=== PATIENT | female | born 1925 | race Caucasian/White ===

== ENCOUNTER 2016-12-20 14:55 | Inpatient (IN) | payer OTHER ==
[~2016-12-20] VITALS: Ht 154.9 cm; Wt 56.2 kg
[~2016-12-20 14:55] MED LIST: ACET-1079 PO; CALC500C71 OR; METO-159 PO; NIFE60TA59 PO; OMEP20CA5 PO; PRO10T OR; TRAM50TA2 OR; [UNRECOGNIZED DRUG - CODE] PO
[2016-12-20] MEDS ORDERED: ONDANSETRON HCL 4 MG/2 ML VIAL IV ONE (15:45)
[2016-12-20] MEDS ORDERED: MORPHINE SULFATE 4 MG/ML SYRG IV ONE (15:45)
[2016-12-20 16:25] LABS: Hematocrit 40.8 % (36.0-46.0); Hemoglobin 13.1 g/dL (12.2-16.2); Mean Corpuscular Hemoglobin 30.1 pg (28.0-32.0); Mean Corpuscular Volume 94.1 fL (80.0-100.0); Mean Platelet Volume 8.7 fL (7.4-10.4); Platelet Count (auto) 238 10^3/uL (140-450); Red Cell Distribution Width 13.5 % (11.6-16.0); SUSPECT VIEW TRANSMISSION; White Blood Cell 18.3 10^3/uL (4.4-10.8)
[2016-12-20 16:39] LABS: Metamyelocytes % 0; Myelocytes % 0; Promyelocytes % 0; Reactive Lymphocytes 0
[2016-12-20 16:44] LABS: Albumin 3.7 g/dL (3.4-5.0); Calcium 9.5 mg/dL (8.5-10.1); Potassium 4.2 mmol/L (3.5-5.1)
[2016-12-20 16:46] LABS: BUN/Creatinine Ratio 13.7
[2016-12-20 16:57] LABS: Bilirubin, Total 0.5 mg/dL (0.2-1.0); Total Protein 7.3 g/dL (6.4-8.2)
[2016-12-20] MEDS ORDERED: NITROGLYCERIN 0.4 MG SL TAB SL PRN (18:00)
[2016-12-20] MEDS ORDERED: MORPHINE SULF INJ 2 MG/ML SYRINGE 1ML IV PRN (18:00)
[2016-12-20] MEDS ORDERED: ACETAMINOPHEN 500 MG TAB PO PRN (18:00)
[2016-12-20] MEDS ORDERED: DEXTROSE (50%) 50ML SYRG IV PRN (18:00)
[2016-12-20] MEDS ORDERED: TEMAZEPAM 15 MG CAP PO PRN (18:00)
[2016-12-20] MEDS ORDERED: HYDROcodone-ACET 5/325MG TAB PO PRN (18:00)
[2016-12-20] MEDS ORDERED: PROMETHAZINE HCL 25 MG/ML 1ML IV PRN (18:00)
[2016-12-20] MEDS: SODIUM CHLORIDE 0.9% 1,000 ML IV SCH (18:15)
[2016-12-20] MEDS: MORPHINE SULF INJ 2 MG/ML SYRINGE 1ML IV PRN ×2 (18:21→22:27)
[2016-12-20 19:04] LABS: Platelet Estimate Adequate
[2016-12-20 21:35] VITALS: BP 209/110
[2016-12-20 22:07] VITALS: BP 209/110
[2016-12-20] MEDS: LORazepam 0.5 MG TAB PO PRN (22:56)
[2016-12-20] MEDS: ACCU-CHEK COMFORT CURVE STRIP VI SCH (23:05)
[2016-12-20] MEDS: InsuLIN REG 1unit/0.01ml Soln (100units/ml) SC SCH (23:45)
[2016-12-21] MEDS ORDERED: ONDANSETRON HCL 4 MG/2 ML VIAL IV PRN (00:15)
[2016-12-21] MEDS ORDERED: DILTIAZEM HCL 25 MG/5 ML VIAL IV ONE (00:15)
[2016-12-21] MEDS: HYDROmorphone HCL 2 MG/ML VL IV PRN ×6 (00:43→21:47)
[2016-12-21] MEDS: LORazepam 0.5 MG TAB PO PRN ×2 (04:58→12:36)
[2016-12-21] MEDS: SODIUM CHLORIDE 0.9% 1,000 ML IV SCH ×3 (05:10→17:53)
[2016-12-21 06:21] VITALS: BP 208/79
[2016-12-21] MEDS: ACCU-CHEK COMFORT CURVE STRIP VI SCH ×4 (06:50→21:47)
[2016-12-21] MEDS: InsuLIN REG 1unit/0.01ml Soln (100units/ml) SC SCH ×4 (07:01→21:54)
[2016-12-21 08:28] VITALS: BP 184/85
[2016-12-21] MEDS ORDERED: LABETALOL HCL 5 MG/ML 4ML SYRINGE IV ONE (11:30)
[2016-12-21 15:46] LABS: Hemoglobin 9.6 g/dL (12.2-16.2); Mean Corpuscular Hemoglobin 30.2 pg (28.0-32.0); Mean Corpuscular Hgb Conc. 31.9 g/dL (32.0-36.0); Mean Corpuscular Volume 94.8 fL (80.0-100.0); Mean Platelet Volume 8.8 fL (7.4-10.4); Platelet Count (auto) 156 10^3/uL (140-450); Red Cell Distribution Width 13.9 % (11.6-16.0); SUSPECT VIEW TRANSMISSION; White Blood Cell 16.9 10^3/uL (4.4-10.8)
[2016-12-21 15:54] LABS: Metamyelocytes % 0; Myelocytes % 0; Promyelocytes % 0; Reactive Lymphocytes 0
[2016-12-21 16:33] LABS: Giant Platelets Few; Platelet Estimate Adequate
[2016-12-21 17:41] LABS: BUN/Creatinine Ratio 23.8; Calcium 7.9 mg/dL (8.5-10.1); Potassium 5.1 mmol/L (3.5-5.1)
[2016-12-21] MEDS ORDERED: LOPE1TAB9 PO (18:28)
[2016-12-21] MEDS ORDERED: OMEP20CA5 PO (18:28)
[2016-12-21] MEDS ORDERED: MECL-87 PO (18:28)
[2016-12-21] MEDS ORDERED: DIPH25CA6 PO (18:28)
[2016-12-21] MEDS ORDERED: OXYB15TA12 PO (18:28)
[2016-12-21] MEDS ORDERED: ALPR0.25 PO (18:28)
[2016-12-21] MEDS ORDERED: SULF400T11 PO (18:28)
[2016-12-21] MEDS ORDERED: LOSA25TA9 PO (18:28)
[2016-12-21] MEDS ORDERED: ASPI81CH43 PO (18:28)
[2016-12-21] MEDS ORDERED: IODIXANOL 320MG/ML 100ML BTL IV ONE (19:30)
[2016-12-21 21:30] VITALS: BP 171/68
[2016-12-21 22:15] VITALS: BP 187/71
[2016-12-21] MEDS: LABETALOL HCL 5 MG/ML 4ML SYRINGE IV PRN (22:36)
[2016-12-22] MEDS: HYDROmorphone HCL 2 MG/ML VL IV PRN ×4 (03:40→19:05)
[2016-12-22 05:00] VITALS: BP 152/72
[2016-12-22 06:22] LABS: Urine Bilirubin Negative (Negative); Urine Blood Negative /uL (Negative); Urine Color Yellow (Yellow); Urine Glucose Normal (Normal); Urine Hyaline Cast FEW /lpf (0 - 2); Urine Ketone Negative (Negative); Urine Nitrite Negative (Negative); Urine RBC <1 /hpf (0 - 4); Urine Squamous Epithelial Cell FEW /hpf (<5); Urine Urobilinogen Normal (Negative)
[2016-12-22] MEDS: ACCU-CHEK COMFORT CURVE STRIP VI SCH ×4 (06:23→21:55)
[2016-12-22] MEDS: InsuLIN REG 1unit/0.01ml Soln (100units/ml) SC SCH ×4 (06:30→22:00)
[2016-12-22] MEDS: SODIUM CHLORIDE 0.9% 1,000 ML IV SCH ×2 (08:11→22:32)
[2016-12-22 09:00] VITALS: BP 155/75
[2016-12-22] MEDS: NIFEdipine ER 30 MG TAB PO SCH (10:00)
[2016-12-22 11:19] LABS: DEFINITIVE VIEW TRANSMISSION; Hematocrit 25.5 % (36.0-46.0); Hemoglobin 8.2 g/dL (12.2-16.2); Mean Corpuscular Hemoglobin 30.1 pg (28.0-32.0); Mean Platelet Volume 8.4 fL (7.4-10.4); Platelet Count (auto) 141 10^3/uL (140-450); Red Cell Distribution Width 13.5 % (11.6-16.0); SUSPECT VIEW TRANSMISSION; White Blood Cell 18.5 10^3/uL (4.4-10.8)
[2016-12-22 11:32] LABS: Metamyelocytes % 0; Myelocytes % 0; Promyelocytes % 0; Reactive Lymphocytes 0
[2016-12-22 11:41] LABS: Albumin 2.7 g/dL (3.4-5.0); BUN/Creatinine Ratio 46.9; Bilirubin, Total 0.5 mg/dL (0.2-1.0); Calcium 8.2 mg/dL (8.5-10.1); Potassium 4.5 mmol/L (3.5-5.1); Total Protein 5.8 g/dL (6.4-8.2)
[2016-12-22 12:00] VITALS: BP 165/80
[2016-12-22] MEDS: LABETALOL HCL 5 MG/ML 4ML SYRINGE IV PRN ×2 (13:58→23:54)
[2016-12-22] MEDS ORDERED: ALPRAZolam 0.25 MG TAB PO SCH (14:45)
[2016-12-22 14:58] LABS: Platelet Estimate Adequate
[2016-12-22] MEDS ORDERED: METOPROLOL TARTRATE 50 MG TAB PO ONE (15:00)
[2016-12-22] MEDS ORDERED: LOSARTAN POTASSIUM 25 MG TAB PO ONE (15:00)
[2016-12-22 17:00] VITALS: BP 179/67
[2016-12-22 18:00] VITALS: BP 179/67
[2016-12-22 21:30] VITALS: BP 192/93
[2016-12-22] MEDS: METOPROLOL TARTRATE 50 MG TAB PO SCH (21:54)
[2016-12-22] MEDS: LORazepam 0.5 MG TAB PO PRN (21:55)
[2016-12-22] MEDS: LOSARTAN POTASSIUM 25 MG TAB PO SCH (21:55)
[2016-12-22] MEDS ORDERED: PATIENTS OWN MEDICATION (Metoprolol Tartrate 1 TAB) PO SCH (22:00)
[2016-12-22] MEDS ORDERED: ALBUTEROL SULF 2.5 MG/0.5ML(0.5%) NEB SOLN NEB PRN (23:45)
[2016-12-22] MEDS ORDERED: LEVOFLOXACIN 500MG 100 ML IV ONE (23:45)
[2016-12-22] MEDS ORDERED: ALBUTEROL SULF 2.5 MG/0.5ML(0.5%) NEB SOLN ONE (23:56)
[2016-12-23] MEDS: ALBUTEROL SULF 2.5 MG/0.5ML(0.5%) NEB SOLN NEB SCH ×4 (00:05→19:18)
[2016-12-23] MEDS: HYDROmorphone HCL 2 MG/ML VL IV PRN ×5 (00:35→23:17)
[2016-12-23 04:28] VITALS: BP 116/74
[2016-12-23] MEDS: CLINDAMYCIN 600MG IV 50 ML IV SCH ×3 (05:49→22:49)
[2016-12-23] MEDS: ACCU-CHEK COMFORT CURVE STRIP VI SCH ×4 (06:41→22:00)
[2016-12-23] MEDS: InsuLIN REG 1unit/0.01ml Soln (100units/ml) SC SCH ×4 (06:42→22:00)
[2016-12-23 07:34] LABS: DEFINITIVE VIEW TRANSMISSION; Hematocrit 22.8 % (36.0-46.0); Hemoglobin 7.3 g/dL (12.2-16.2); Mean Corpuscular Hemoglobin 30.4 pg (28.0-32.0); Mean Corpuscular Volume 94.8 fL (80.0-100.0); Platelet Count (auto) 129 10^3/uL (140-450); SUSPECT VIEW TRANSMISSION; White Blood Cell 14.7 10^3/uL (4.4-10.8)
[2016-12-23 08:04] LABS: Metamyelocytes % 0; Myelocytes % 0; Promyelocytes % 0; Reactive Lymphocytes 0
[2016-12-23 09:00] VITALS: BP 157/69
[2016-12-23 09:14] VITALS: BP 116/74
[2016-12-23 09:21] LABS: Platelet Estimate Decreased; RBC Morphology Normal
[2016-12-23] MEDS ORDERED: OMEPRAZOLE 20MG/10ML ORAL SUSP PO SCH (10:00)
[2016-12-23] MEDS ORDERED: PATIENTS OWN MEDICATION (Nifedipine (Nifedipine Er) 1 TAB) PO SCH ×2 (10:00)
[2016-12-23] MEDS: NIFEdipine ER 30 MG TAB PO SCH (10:08)
[2016-12-23] MEDS: PANTOPRAZOLE 40 MG TAB PO SCH (10:08)
[2016-12-23] MEDS: ASPirin 81 mg TAB PO SCH (10:08)
[2016-12-23] MEDS: METOPROLOL TARTRATE 50 MG TAB PO SCH ×2 (10:09→22:00)
[2016-12-23] MEDS: LOSARTAN POTASSIUM 25 MG TAB PO SCH ×2 (10:09→22:00)
[2016-12-23] MEDS: LEVOFLOXACIN 500MG 100 ML IV SCH (10:10)
[2016-12-23 12:21] VITALS: BP 143/61
[2016-12-23] MEDS: IPRATROPIUM BROM 0.5 MG/2.5ML INH SOL NEB SCH ×2 (14:40→19:18)
[2016-12-23 16:53] VITALS: BP 126/50
[2016-12-23] MEDS: SODIUM CHLORIDE 0.9% 1,000 ML IV SCH (17:27)
[2016-12-23] MEDS: traMADol HCL 50 MG TAB PO PRN (19:45)
[2016-12-23 22:00] VITALS: BP 124/62
[2016-12-24] MEDS: HYDROmorphone HCL 2 MG/ML VL IV PRN ×2 (04:30→22:24)
[2016-12-24] MEDS ORDERED: FUROSEMIDE 40 MG/4 ML VIAL ONE (05:09)
[2016-12-24] MEDS ORDERED: FUROSEMIDE 20 MG/2 ML VIAL ONE (05:10)
[2016-12-24] MEDS ORDERED: FUROSEMIDE 20 MG/2 ML VIAL IV ONE (05:30)
[2016-12-24] MEDS: CLINDAMYCIN 600MG IV 50 ML IV SCH ×3 (05:48→22:25)
[2016-12-24] MEDS ORDERED: DILTIAZEM HCL 25 MG/5 ML VIAL IV ONE ×2 (05:55→06:00)
[2016-12-24] MEDS: InsuLIN REG 1unit/0.01ml Soln (100units/ml) SC SCH ×4 (06:28→22:34)
[2016-12-24] MEDS: ACCU-CHEK COMFORT CURVE STRIP VI SCH ×4 (06:29→22:34)
[2016-12-24 06:56] LABS: Basophils # (auto) 0 uL; Basophils % (auto) 0.6 % (0.0-2.0); Eosinophils # (auto) 0.1 uL; Eosinophils % (auto) 1.9 % (0.0-7.0); Hematocrit 33.6 % (36.0-46.0); Hemoglobin 10.8 g/dL (12.2-16.2); Lymphocytes # (auto) 2.3 uL; Lymphocytes % (auto) 44.2 % (10.0-50.0); Mean Corpuscular Hemoglobin 28.3 pg (28.0-32.0); Mean Corpuscular Volume 88.4 fL (80.0-100.0); Mean Platelet Volume 8.1 fL (7.4-10.4); Monocytes # (auto) 0.5 uL; Monocytes % (auto) 9.4 % (0.0-12.0); Neutrophils # (auto) 2.3 uL; Neutrophils % (auto) 43.9 % (37.0-80.0); Platelet Count (auto) 188 10^3/uL (140-450); Red Cell Distribution Width 15.1 % (11.6-16.0); White Blood Cell 5.2 10^3/uL (4.4-10.8)
[2016-12-24 07:11] LABS: Calcium 7.7 mg/dL (8.5-10.1); Potassium 3.4 mmol/L (3.5-5.1)
[2016-12-24 07:13] LABS: BUN/Creatinine Ratio 17.5
[2016-12-24] MEDS: IPRATROPIUM BROM 0.5 MG/2.5ML INH SOL NEB SCH ×4 (07:26→18:40)
[2016-12-24] MEDS: ALBUTEROL SULF 2.5 MG/0.5ML(0.5%) NEB SOLN NEB SCH ×4 (07:26→18:40)
[2016-12-24 08:00] VITALS: BP 125/50
[2016-12-24 08:44] VITALS: BP 104/76
[2016-12-24] MEDS: LEVOFLOXACIN 500MG 100 ML IV SCH (09:58)
[2016-12-24] MEDS: NIFEdipine ER 30 MG TAB PO SCH (10:00)
[2016-12-24] MEDS: METOPROLOL TARTRATE 50 MG TAB PO SCH ×2 (10:01→22:34)
[2016-12-24] MEDS: traMADol HCL 50 MG TAB PO PRN (10:02)
[2016-12-24] MEDS: PANTOPRAZOLE 40 MG TAB PO SCH (10:03)
[2016-12-24] MEDS: LOSARTAN POTASSIUM 25 MG TAB PO SCH ×2 (10:03→22:33)
[2016-12-24] MEDS: ASPirin 81 mg TAB PO SCH (10:04)
[2016-12-24 13:00] VITALS: BP 81/45
[2016-12-24 17:00] VITALS: BP 99/48
[2016-12-24] MEDS: SODIUM CHLORIDE 0.9% 1,000 ML IV SCH (17:56)
[2016-12-24 19:50] VITALS: BP 95/44
[2016-12-24 20:30] VITALS: BP 95/44
[2016-12-25] MEDS: HYDROmorphone HCL 2 MG/ML VL IV PRN (03:42)
[2016-12-25 04:57] VITALS: BP_SYST 66; BP_SYST 75; BP_DIAS 34; BP_DIAS 38
[2016-12-25] MEDS: CLINDAMYCIN 600MG IV 50 ML IV SCH (06:15)
[2016-12-25] MEDS: InsuLIN REG 1unit/0.01ml Soln (100units/ml) SC SCH (06:15)
[2016-12-25] MEDS: ACCU-CHEK COMFORT CURVE STRIP VI SCH (06:15)
[2016-12-25 06:24] LABS: DEFINITIVE VIEW TRANSMISSION; Hematocrit 28.3 % (36.0-46.0); Hemoglobin 8.9 g/dL (12.2-16.2); Mean Corpuscular Hemoglobin 30.9 pg (28.0-32.0); Mean Corpuscular Hgb Conc. 31.4 g/dL (32.0-36.0); Mean Corpuscular Volume 98.2 fL (80.0-100.0); Mean Platelet Volume 9.9 fL (7.4-10.4); Platelet Count (auto) 180 10^3/uL (140-450); Red Cell Distribution Width 14.7 % (11.6-16.0); SUSPECT VIEW TRANSMISSION; White Blood Cell 24.7 10^3/uL (4.4-10.8)
[2016-12-25 06:30] LABS: Promyelocytes % 0; Reactive Lymphocytes 0
[2016-12-25 07:15] VITALS: BP 66/38
[2016-12-25] MEDS: ALBUTEROL SULF 2.5 MG/0.5ML(0.5%) NEB SOLN NEB SCH (07:15)
[2016-12-25] MEDS: IPRATROPIUM BROM 0.5 MG/2.5ML INH SOL NEB SCH (07:15)
[2016-12-25 08:32] LABS: BUN/Creatinine Ratio 19.9; Calcium 9.2 mg/dL (8.5-10.1); Potassium 5.1 mmol/L (3.5-5.1)
[2016-12-25 09:00] LABS: Metamyelocytes % 1; Myelocytes % 1
[2016-12-25 09:01] LABS: Burr Cells FEW; Large Platelets FEW; Platelet Estimate Adequa
== END 2016-12-25 12:15 | disposition expired | DRG 871 ==
LOC: EDBD 14:55 → ER 14:57 → TELE 14:58 → TELE-WESTW 22:12
PROVIDERS: ADMIT Internal Medicine; ATTEND Family Medicine
PROC: 5A09457 Assistance with Respiratory Ventilation, 24-96 Consecutive Hours, Continuous Positive Airway Pressure (ICD-10-PCS; principal; 2016-12-24)
DX: A41.9 Sepsis, unspecified organism (principal); J18.9 Pneumonia, unspecified organism; J96.90 Respiratory failure, unspecified, unspecified whether with hypoxia or hypercapnia; I63.9 Cerebral infarction, unspecified; S42.102A Fracture of unspecified part of scapula, left shoulder, initial encounter for closed fracture; W10.9XXA Fall (on) (from) unspecified stairs and steps, initial encounter; R73.9 Hyperglycemia, unspecified; I10 Essential (primary) hypertension; I25.10 Atherosclerotic heart disease of native coronary artery without angina pectoris; R22.2 Localized swelling, mass and lump, trunk; Z66 Do not resuscitate; M81.0 Age-related osteoporosis without current pathological fracture; M51.36 Other intervertebral disc degeneration, lumbar region; K21.9 Gastro-esophageal reflux disease without esophagitis; M54.5 Low back pain; G89.29 Other chronic pain; F03.90 Unspecified dementia, unspecified severity, without behavioral disturbance, psychotic disturbance, mood disturbance, and anxiety; M47.9 Spondylosis, unspecified; E78.5 Hyperlipidemia, unspecified; K57.90 Diverticulosis of intestine, part unspecified, without perforation or abscess without bleeding; Z90.49 Acquired absence of other specified parts of digestive tract; Y93.89 Activity, other specified; Y99.8 Other external cause status; Z82.49 Family history of ischemic heart disease and other diseases of the circulatory system; Z88.5 Allergy status to narcotic agent; Z79.899 Other long term (current) drug therapy; Z79.82 Long term (current) use of aspirin; Y92.009 Unspecified place in unspecified non-institutional (private) residence as the place of occurrence of the external cause
CPT/HCPCS: 36415; 71010; 71250; 71260; 72131; 73030; 80048; 80053; 81001; 82962; 83036; 83735; 84484; 85007; 85025; 85027; 87040; 87086; 87400; 92610; 93005; 94640; 94660; 94761; 96374; 96375; 96376; J1815; J1956; J2405; J3490; Q9967